=== PATIENT | female | born 1990 | race Caucasian/White ===

== ENCOUNTER 2019-06-10 23:18 | Inpatient (IN) | payer OTHER ==
[2019-06-11] MEDS ORDERED: Bupivacaine 0.25% 10 ML SDV ONE
[2019-06-11] MEDS ORDERED: Nalbuphine 10 MG/1 ML Vial IVPUSH PRN (00:07)
[2019-06-11] MEDS ORDERED: Ondansetron 4 MG/2 ML SDV IVPUSH PRN ×2 (00:07→02:41)
[2019-06-11] MEDS ORDERED: Sodium Chloride 0.9% 10 ML Syringe FLUSH PRN (00:07)
[2019-06-11] MEDS ORDERED: Oxytocin/Lactated Ringers 10 UNIT/1,000 ML BAG IV SCH ×2 (00:15)
[2019-06-11] MEDS: Lactated Ringers 1,000 ML IV SCH ×2 (02:07→02:43)
[2019-06-11] MEDS ORDERED: fentaNYL 100 MCG/2 ML SDV EPIDUR PRN (02:41)
[2019-06-11] MEDS ORDERED: fentaNYL/Bupivacaine/NS 2 MCG-0.125% 250 ML EPIDUR PRN (02:41)
[2019-06-11] MEDS ORDERED: ePHEDrine 50 MG/ML SDV IVPUSH PRN (02:41)
[2019-06-11] MEDS ORDERED: Phenylephrine 1 MG in Sodium Chloride 0.9% 10 ML IV SCH (02:45)
--- NOTE | 2019-06-11 02:45 | PCM.PREANE ---
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.), Seizure (Seizure noted about 18 years ago: patient currently not on any seizure medication) Other: Reports: None, Sinus Problem - Physical Assessment NPO Status Date: 06/10/19 NPO Status Time: 20:00 Vital Signs: Last Vital Signs Temp 36.9 C 06/10/19 23:29 Pulse 76 06/10/19 23:29 Resp 16 06/10/19 23:29 BP 137/71 06/10/19 23:29 Pulse Ox 100 06/10/19 23:29 Height: 1.7 m Weight: 81.193 kg ASA Class: 2 Mental Status: Alert & Oriented x3 Airway Class: Mallampati = 1 Dentition: Reports: Normal Dentition, Caries Thyro-Mental Finger Breadths: 3 Mouth Opening Finger Breadths: 3 ROM/Head Extension: Full Lungs: Clear to Auscultation, Normal Respiratory Effort Cardiovascular: Regular Rate, Regular Rhythm, No Murmurs - Lab Values: Laboratory Last Values WBC 13.41 K/mm3 (3.98-10.04) H 06/11/19 00:33 RBC 4.19 M/mm3 (3.98-5.22) 06/11/19 00:33 Hgb 12.8 gm/dl (11.2-15.7) 06/11/19 00:33 Hct 38.0 % (34.1-44.9) 06/11/19 00:33 MCV 90.7 fl (79.4-94.8) 06/11/19 00:33 MCH 30.5 pg (25.6-32.2) 06/11/19 00:33 MCHC 33.7 g/dl (32.2-35.5) 06/11/19 00:33 RDW Std Deviation 43.2 fL (36.4-46.3) 06/11/19 00:33 Plt Count 249 K/mm3 (182-369) 06/11/19 00:33 MPV 9.1 fl (9.4-12.3) L 06/11/19 00:33 Neut % (Auto) 69.8 % (34.0-71.1) 06/11/19 00:33 Lymph % (Auto) 19.5 % (19.3-51.7) 06/11/19 00:33 [place] % (Auto) 9.2 % (4.7-12.5) 06/11/19 00:33 Eos % (Auto) 0.8 (0.7-5.8) 06/11/19 00:33 Baso % (Auto) 0.3 % (0.1-1.2) 06/11/19 00:33 Neut # (Auto) 9.35 K/mm3 (1.56-6.13) H 06/11/19 00:33 Lymph # (Auto) 2.62 K/mm3 (1.18-3.74) 06/11/19 00:33 [place] # (Auto) 1.23 K/mm3 (0.24-0.36) H 06/11/19 00:33 Eos # (Auto) 0.11 K/mm3 (0.04-0.36) 06/11/19 00:33 Baso # (Auto) 0.04 K/mm3 (0.01-0.08) 06/11/19 00:33 Above labs reviewed and noted and within acceptable ranges to proceed with epidural. - Allergies Allergies/Adverse Reactions: Allergies Allergy/AdvReac Type Severity Reaction Status Date / Time No Known Allergies Allergy Verified 06/10/19 23:29 - Anesthesia Plan Pre-Op Medication Ordered: None - Acknowledgements Anesthesia Type Planned: Epidural Pt an Appropriate Candidate for the Planned Anesthesia: Yes Alternatives and Risks of Anesthesia Discussed w Pt/Guardian: Yes Pt/Guardian Understands and Agrees with Anesthesia Plan: Yes PreAnesthesia Questionnaire Cardiovascular History: Reports: Other (See Below) Other Cardiovascular History: Antiphospholipid syndrome- positive anti- cardiolipin antibody 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: Neurological History: Reports: Seizure, Other (See Below) Other Neuro History: Epilepsy in childhood, seizure free over 20 years per pt Immunologic History: Reports: Other (See Below) Other Immunologic History: Connective tissue disorder - Infectious Disease History Infectious Disease History: Reports: Chicken Pox - Past Surgical History HEENT Surgical History: Reports: Oral Surgery, Tonsillectomy Musculoskeletal Surgical History: Reports: Other (See Below) Other Musculoskeletal Surgeries/Procedures:: Right ACL repair - SUBSTANCE USE Smoking Status *Q: Never Smoker Second Hand Smoke Exposure: No Recreational Drug Use History: No - HOME MEDS Home Medications: Home Meds Vit with Ca/FA/Iron [ Plus Iron] 1 each PO DAILY #100 tablet [Rx] Aspirin [Adult Low Dose Aspirin EC] 81 mg PO DAILY 04/24/19 [History] Calcium Carbonate [Calcium] 500 mg PO DAILY 04/24/19 [History] - CURRENT (IN HOUSE) MEDS Current Meds: Current Medications Ephedrine Sulfate (Ephedrine Sulfate) 5 mg IVPUSH ASDIRECTED PRN PRN Reason: Hypotension Fentanyl (Sublimaze) 100 mcg EPIDUR Q3H PRN PRN Reason: Pain Fentanyl/Bupivacaine HCl (Fentanyl/Bupivacaine/Ns 2 Mcg-0.125% 250 Ml) ml EPIDUR CONTINUOUS PRN PRN Reason: Pain Lactated Ringer's (Ringers, Lactated) 1,000 mls @ 100 mls/hr IV ASDIRECTED BLAYNE Last Admin: 06/11/19 02:07 Dose: 100 mls/hr Oxytocin/Lactated Ringer's (Pitocin In Lr 10 Units/1,000 Ml) 10 unit in 1,000 mls @ 12 mls/hr IV TITRATE BLAYNE; Protocol Oxytocin/Lactated Ringer's (Pitocin In Lr 10 Units/1,000 Ml) 10 unit in 1,000 mls @ 500 mls/hr IV .CONTINUOUS BLAYNE Phenylephrine HCl 1 mg/ Sodium (Chloride) 10.1 mls @ 1 mls/sec IV TITRATE BLAYNE; Protocol Nalbuphine HCl (Nubain) 10 mg IVPUSH Q2H PRN PRN Reason: Pain Ondansetron HCl (Zofran) 4 mg IVPUSH Q4H PRN PRN Reason: Nausea/Vomiting Ondansetron HCl (Zofran) 4 mg IVPUSH ONETIME PRN PRN Reason: Nausea/Vomiting Sodium Chloride (Saline Flush) 10 ml FLUSH ASDIRECTED PRN PRN Reason: Keep Vein Open
--- NOTE | 2019-06-11 07:17 | PCM.LDHP ---
L&D History of Present Illness - General Date of Service: 06/11/19 Admit Problem/Dx: Patient Status Order with Admit Dx/Problem 06/10/19 23:29 Patient Status [ADT] Routine 06/11/19 00:08 Patient Status [ADT] Routine Admission Diagnosis/Problem Admission Diagnosis/Problem 06/11/19 07:04 Nicolette is a 28-year-old 3 para 2002 white female at 37-6/7 weeks gestational age with an NESSA of 06/26/2019 who was admitted in active labor with progressive cervical dilation. Source of Information: Patient History Limitations: Reports: No Limitations - History of Present Illness Introduction:: Nicolette is a 28-year-old 3 para 2002 white female at 37-6/7 weeks gestational age with an NESSA of 06/26/2019 who was admitted in active labor with progressive cervical dilation.Patient began in very early labor last evening on 06/10/2019 and progressed to contractions every 3 minutes. She continues with contractions. Her cervix is dilated to 6 cm, 100% effaced, -1 station, cephalic presentation, shearer is ruptured with resultant clear amniotic fluid. Heart tones are reassuring. 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 09/19/2018 and supported by multiple ultrasounds during the course of the . Ultrasound being done at 12-2/7 weeks gestational age. She had menarche at age 13. Cycles every 28-30 days. No control being used at time conception. Positive hCG on 10/16/2018. Last period was definite. Patient's past obstetric history includes the followin. Male infant born 06/13/201439-5/7 weeks gestational age13 hours of labor6 lbs. 7 oz.normal spontaneous vaginal deliverypain control in [facility]St[facility]. Female infant born 06/17/201638-3/7 weeks gestational age12 hours of labor6 lbs. 13 oz.NSVDepidural for pain controlSt [facility] [place] course patient was initially seen on 12/13/2018 ultrasound confirmed dates. She was seen on a very regular basis throughout the area she has a history of anticardiolipin IgM positive status with the picture similar to a mixed connective tissue disease. She is followed by rheumatology in [place], [place]. Table throughout the course. She's been evaluated on a frequent basis with both ultrasounds and over the last 10 weeks weekly biophysical profiles. She is made good growth and it showed no evidence of uteroplacental compromise. She had a positive RPR but a confirmatory Treponema pallidum antibody test was negative. She is group B strep negative. She has had immunizations with influenza vaccine 05/28/2019. T dap 04/30/2019. Her rubella titer shows immunity. She had her hepatitis B vaccination in 2002. Her meningococcal vaccination in 2007. Her HPV vaccinations were in 2006 per protocol. During the course of her care patient's weight increased from 150- 173.8 pounds for approximate 24 pound weight gain. She was a centering patient. She is maintained on vitamins and calcium throughout the course. She was also on low dose aspirin empirically. 8 growth was appropriate and her vital signs remained stable throughout the course. Laboratory testing and showed her blood type to be AB+. Her antibody screen is negative. Hemoglobin at first visit was 13.9 g/dL and platelets are 323,000. She is rubella immune. RPR was reactive but a confirmatory Treponema pallidum antibody study was negative. Urine culture was negative. Hepatitis B surface antigen and HIV assays are both negative as were her gonorrhea and chlamydia evaluations. Second trimester laboratory testing showed hemoglobin 13.3 g/dL. Platelets were 263,000. One-hour GTT was normal at 86. Her group B strep screen was negative. Allergies: None Medications: 1. Calcium 600 mg per day 2 1 by mouth daily 3. Acetaminophen when necessary during for pain 4. Low-dose aspirin 81 mg by mouth daily Past medical history: 1. 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 2. 3. Seizures as a childresolved Past surgical history: 1. Right knee ACL repair 2. Tonsillectomy 3. [place] teeth extraction Family history: Niece patient has congenital heart defect. Patient's are alive and relatively good health. No -related problems are noted. No bleeding , blood clotting, or anesthesia problems reported. Social history: Patient is . She is college graduate. She works for the [employer]. She does not use any significant loss of alcohol, drugs or tobacco. She lives in [place], [place]. Review of systems: In general patient has no complaints. She is khushboo. Baby is active. Skin: Negative Lungs: No infectious symptoms or shortness of breath Cardiovascular: No chest pain or exercise intolerance Breasts: No lumps, changes in size, pain, dimpling, discharge or axillary or supraclavicular concerns. Changes associated with . GI: Negative : Changes associated with . Musculoskeletal: Negative Neurological: Negative In general the patient is well-developed, well-nourished, pleasant female of stated age in no acute distress. Skin is warm dry without lesions. HEENT, neck and back within normal limits. Lungs are clear with good breath sounds in all lung taveras. Cardiovascular exam shows regular and rhythm without murmurs. Breasts exam is deferred having been done at first visit and found to be normal it is not repeated at this time. Abdomen is gravid with last fundal height in clinic at 36+ centimeters consistent with gestational age. Genital exam as described above in history of present illness. Extremities and neurological exam are grossly within normal limits. 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: Neurological History: Reports: Seizure, Other (See Below) Other Neuro History: Epilepsy in childhood, seizure free over 20 years per pt Immunologic History: Reports: Other (See Below) Other Immunologic History: Connective tissue disorder - Infectious Disease History Infectious Disease History: Reports: Chicken Pox - Past Surgical History HEENT Surgical History: Reports: Oral Surgery, Tonsillectomy Musculoskeletal Surgical History: Reports: Other (See Below) Other Musculoskeletal Surgeries/Procedures:: Right ACL repair Social & Family History - Family History Family Medical History: Noncontributory - Tobacco Use Smoking Status *Q: Never Smoker Second Hand Smoke Exposure: No - Recreational Drug Use Recreational Drug Use: No H&P Review of Systems - Review of Systems: Review Of Systems: See Below L&D Exam - Exam Exam: See Below - Vital Signs Vital Signs: Last Vital Signs Temp 36.9 C 06/10/19 23:29 Pulse 76 06/10/19 23:29 Resp 16 06/10/19 23:29 BP 137/71 06/10/19 23:29 Pulse Ox 100 06/10/19 23:29 Weight: 81.193 kg - Patient Data Lab Results Last 24 hrs: Laboratory Results - last 24 hr 06/11/19 Range/Units 00:33 WBC 13.41 H (3.98-10.04) K/mm3 RBC 4.19 (3.98-5.22) M/mm3 Hgb 12.8 (11.2-15.7) gm/dl Hct 38.0 (34.1-44.9) % MCV 90.7 (79.4-94.8) fl MCH 30.5 (25.6-32.2) pg MCHC 33.7 (32.2-35.5) g/dl RDW Std Deviation 43.2 (36.4-46.3) fL Plt Count 249 (182-369) K/mm3 MPV 9.1 L (9.4-12.3) fl Neut % (Auto) 69.8 (34.0-71.1) % Lymph % (Auto) 19.5 (19.3-51.7) % [place] % (Auto) 9.2 (4.7-12.5) % Eos % (Auto) 0.8 (0.7-5.8) Baso % (Auto) 0.3 (0.1-1.2) % Neut # (Auto) 9.35 H (1.56-6.13) K/mm3 Lymph # (Auto) 2.62 (1.18-3.74) K/mm3 [place] # (Auto) 1.23 H (0.24-0.36) K/mm3 Eos # (Auto) 0.11 (0.04-0.36) K/mm3 Baso # (Auto) 0.04 (0.01-0.08) K/mm3 Result Diagrams: 06/11/19 00:33 Problem List Initiated/Reviewed/Updated: Yes Orders Last 24hrs: Active Orders 24 hr Category Date Time Status Patient Status [ADT] Routine ADT 06/11/19 00:08 Active Activity as Tolerated [RC] PFP Care 06/11/19 00:08 Active Antiembolic Devices [RC] PER UNIT ROUTINE Care 06/11/19 03:05 Active Communication Order [RC] ASDIRECTED Care 06/11/19 00:08 Active Heart Tones [RC] ASDIRECTED Care 06/11/19 00:08 Active Non Stress Test [RC] PER UNIT ROUTINE Care 06/10/19 23:29 Active Notify Provider [RC] ASDIRECTED Care 06/11/19 02:41 Active Notify Provider [RC] PFP Care 06/11/19 00:08 Active Notify Provider [RC] PRN Care 06/11/19 00:08 Active Oxygen Therapy [RC] ASDIRECTED Care 06/11/19 02:41 Active Peripheral IV Care [RC] . DIRECTED Care 06/11/19 00:08 Active Pulse Oximetry [RC] ASDIRECTED Care 06/11/19 02:41 Active Vital Signs [RC] PER UNIT ROUTINE Care 06/10/19 23:29 Active Vital Signs [RC] PER UNIT ROUTINE Care 06/11/19 00:08 Active Regular Diet [DIET] Diet 06/11/19 Breakfast Active RAPID PLASMA REAGIN,RPR [CHEM] Routine Lab 06/11/19 00:33 Received Bupivicaine/fentaNYL/NS [fentaNYL/Bupivacaine/NS 2 MCG- Med 06/11/19 02:41 Active 0.125% 250 ML] 0 ml EPIDUR CONTINUOUS PRN Lactated Ringers [Ringers, Lactated] 1,000 ml Med 06/11/19 00:15 Active IV ASDIRECTED Nalbuphine [Nubain] Med 06/11/19 00:07 Active 10 mg IVPUSH Q2H PRN Ondansetron [Zofran] Med 06/11/19 02:41 Active 4 mg IVPUSH ONETIME PRN Ondansetron [Zofran] Med 06/11/19 00:07 Active 4 mg IVPUSH Q4H PRN Oxytocin/Lactated Ringers [Pitocin in LR 10 Units/1,000 Med 06/11/19 00:15 Active ML] 10 unit in 1,000 ml IV .CONTINUOUS Oxytocin/Lactated Ringers [Pitocin in LR 10 Units/1,000 Med 06/11/19 00:15 Active ML] 10 unit in 1,000 ml IV TITRATE Phenylephrine [Gutierrez-Synephrine] 1 mg Med 06/11/19 02:45 Active Sodium Chloride 0.9% [Normal Saline] 10 ml IV TITRATE Sodium Chloride 0.9% [Saline Flush] Med 06/11/19 00:07 Active 10 ml FLUSH ASDIRECTED PRN ePHEDrine [ePHEDrine sulfate] Med 06/11/19 02:41 Active 5 mg IVPUSH ASDIRECTED PRN fentaNYL [Sublimaze] Med 06/11/19 02:41 Active 100 mcg EPIDUR Q3H PRN Electronic Heart Tones Ext w TOCO [WOMSER] Oth 06/11/19 00:08 Ordered Routine Electronic Heart Tones Internal [WOMSER] Per Unit Oth 06/11/19 00:08 Ordered Routine Peripheral IV Insertion Adult [OM.PC] Routine Oth 06/11/19 00:08 Ordered SCD [Sequential Compression Device] [OM.PC] Routine Oth 06/11/19 03:05 Ordered Resuscitation Status Routine Resus Stat 06/10/19 23:29 Ordered Medication Orders Ephedrine Sulfate (Ephedrine Sulfate) 5 mg IVPUSH ASDIRECTED PRN PRN Reason: Hypotension Fentanyl (Sublimaze) 100 mcg EPIDUR Q3H PRN PRN Reason: Pain Last Admin: 06/11/19 02:55 Dose: 100 mcg Fentanyl/Bupivacaine HCl (Fentanyl/Bupivacaine/Ns 2 Mcg-0.125% 250 Ml) 0 ml EPIDUR CONTINUOUS PRN PRN Reason: Pain Last Admin: 06/11/19 02:56 Dose: 250 ml Lactated Ringer's (Ringers, Lactated) 1,000 mls @ 100 mls/hr IV ASDIRECTED BLAYNE Last Admin: 06/11/19 02:43 Dose: 100 mls/hr Infusion: 06/11/19 02:43 Dose: 100 mls/hr Admin: 06/11/19 02:07 Dose: 100 mls/hr Oxytocin/Lactated Ringer's (Pitocin In Lr 10 Units/1,000 Ml) 10 unit in 1,000 mls @ 12 mls/hr IV TITRATE BLAYNE; Protocol Oxytocin/Lactated Ringer's (Pitocin In Lr 10 Units/1,000 Ml) 10 unit in 1,000 mls @ 500 mls/hr IV .CONTINUOUS BLAYNE Phenylephrine HCl 1 mg/ Sodium (Chloride) 10.1 mls @ 1 mls/sec IV TITRATE BLAYNE; Protocol Nalbuphine HCl (Nubain) 10 mg IVPUSH Q2H PRN PRN Reason: Pain Ondansetron HCl (Zofran) 4 mg IVPUSH Q4H PRN PRN Reason: Nausea/Vomiting Ondansetron HCl (Zofran) 4 mg IVPUSH ONETIME PRN PRN Reason: Nausea/Vomiting Sodium Chloride (Saline Flush) 10 ml FLUSH ASDIRECTED PRN PRN Reason: Keep Vein Open Assessment/Plan Comment:: Assessment: 1. 37-6/7 week intrauterine , active labor with advanced cervical dilation. 2. Anticardiolipin M positive statusfindings consistent with mixed connective tissue disease. Patient been followed closely for growth interval and uteroplacental function abnormality. She has done very well and has had normal evaluations antepartum. 3. Group B strep negative 4. Patient plans to breast-feed 5. Patient desires epidural in labor and delivery 6. Patient is up-to-date regarding her flu vaccination, her T dap. She is rubella immune. 7. Patient is a centering patient Plan: 1. Anticipate normal spontaneous vaginal delivery. 2. Inform pediatrics of her anti-M antibody status 3. Epidural in labor and delivery 4. Support breast-feeding incision 5. RPR and CBC upon admission. May need to do confirmatory Treponema pallidum antibody assay to confirm negative status if RPR returned positive.
--- NOTE | 2019-06-11 08:07 | PCM.SN ---
- Free Text/Narrative Note: Nicolette is a 28-year-old 3 para 2003 white female at 37-6/7 weeks gestational age with an NESSA of 06/26/2019 who was admitted in active labor with progressive cervical dilation.Patient began in very early labor during the evening on 06/10/2019 and progressed to contractions every 3 minutes. She progressed steadily towards complete cervical dilation. At approximately 0730 hrs. she became completely dilated. She pushed with 1 contraction delivered a viable, cooper, male infant in the direct occiput anterior position over an intact perineum. The baby weighed 3120 g (6 pounds 14.1 ounces), length of 20.5 inches and Apgars of 8 and 7. Baby was placed on mom's abdomen records allowed to pulsate for approximately 2-3 minutes then was clamped and cut by the patient herself. The umbilical cord had 3 vessels. Umbilical cord blood was obtained. Pitocin per protocol was started at 500 mL per hour. Placenta delivered in a Sosa reason dictation, appeared intact and complete and was discarded per patient desire. Estimated blood loss was 100 mL. Patient plans to breast-feed. Condition: Good
[2019-06-11] MEDS ORDERED: Acetaminophen 325 MG Tab PO PRN (08:29)
[2019-06-11] MEDS ORDERED: Docusate Sodium 100 MG Cap PO PRN (08:29)
[2019-06-11] MEDS: Ibuprofen 600 MG Tab PO PRN ×2 (08:52→19:00)
--- NOTE | 2019-06-11 16:25 | PCM48HPAN ---
Post Anesthesia Note - EVALUATION WITHIN 48HRS OF ANESTHETIC Vital Signs in Normal Range: Yes Patient Participated in Evaluation: Yes Respiratory Function Stable: Yes Airway Patent: Yes Cardiovascular Function Stable: Yes Hydration Status Stable: Yes Pain Control Satisfactory: Yes Nausea and Vomiting Control Satisfactory: Yes Mental Status Recovered: Yes Vital Signs: Last Vital Signs Temp 98.5 F 06/10/19 23:29 Pulse 72 06/11/19 13:28 Resp 14 06/11/19 13:28 BP 132/60 06/11/19 13:28 Pulse Ox 98 06/11/19 13:28
[2019-06-12] MEDS: Ibuprofen 600 MG Tab PO PRN ×3 (00:25→11:12)
--- NOTE | 2019-06-12 09:36 | PCM.DCSUM1 ---
Discharge Summary - Hospital Course Free Text/Narrative:: Nicolette is a 28-year-old 3 para 2003 white female at 37-6/7 weeks gestational age with an NESSA of 06/26/2019 who was admitted in active labor with progressive cervical dilation.Patient began in very early labor during the evening on 06/10/2019 and progressed to contractions every 3 minutes. She progressed steadily towards complete cervical dilation. At approximately 0730 hrs. she became completely dilated. She pushed with 1 contraction delivered a viable, cooper, male infant in the direct occiput anterior position over an intact perineum. The baby weighed 3120 g (6 pounds 14.1 ounces), length of 20.5 inches and Apgars of 8 and 7. Baby was placed on mom's abdomen records allowed to pulsate for approximately 2-3 minutes then was clamped and cut by the patient herself. The umbilical cord had 3 vessels. Umbilical cord blood was obtained. Pitocin per protocol was started at 500 mL per hour. Placenta delivered in a Sosa reason dictation, appeared intact and complete and was discarded per patient desire. Estimated blood loss was 100 mL. Patient plans to breast-feed. patient is done well. She has minimal lochia, was voiding well and ambulating without concerns. She is a question discharge home. Condition: Good Diagnosis: Stroke: No - Discharge Data Discharge Date: 06/12/19 Discharge Disposition: Home, Self-Care 01 Condition: Good - Referral to Home Health Primary Care Physician: Andriy Felix MD - Patient Instructions Diet: Regular Diet as Tolerated (nursing diet with increase calories and calcium is recommended) Activity: As Tolerated (no intercourse or tampons until bleeding resolves) Driving: May Drive Today Showering/Bathing: May Shower (may take a bath) Notify Provider of: Fever, Increased Pain, Swelling and Redness, Nausea and/or Vomiting - Discharge Plan Home Medications: Home Meds Vit with Ca/FA/Iron [ Plus Iron] 1 each PO DAILY #100 tablet [Rx] Calcium Carbonate [Calcium] 500 mg PO DAILY 04/24/19 [History] Acetaminophen [Tylenol] 650 mg PO Q4H PRN tablet 06/12/19 [Rx] Ibuprofen [Motrin] 600 mg PO Q4H PRN tablet 06/12/19 [Rx] Referrals: Andriy Felix MD [Primary Care Provider] - (return to clinictwo weeks-Dr. Felix) - Discharge Summary/Plan Comment DC Time >30 min.: No Discharge Summary/Plan Comment: Discharge instructions: 1. Discharge home 2. Diet, activity and follow-up discussed with patient. Recommend nursing diet with increased calories and calcium. 3. Precautions given concern increased pain, bleeding, temperature, signs/ symptoms of DVT/PE. 4. Medications per home medication was printed, discussed with and given to the patient. 5. Return to clinic-Dr. Felix[facility] in 2 weeks. Diagnosis: Term -delivered Condition: Good - Patient Data Vitals - Most Recent: Last Vital Signs Temp 36.7 C 06/12/19 04:40 Pulse 65 06/12/19 04:40 Resp 16 06/12/19 04:40 BP 116/72 06/12/19 04:40 Pulse Ox 98 06/12/19 04:40 Weight - Most Recent: 81.193 kg I&O - Last 24 hours: Intake & Output 06/11/19 06/12/19 06/12/19 22:59 06:59 14:59 Intake Total 240 Balance 240 Lab Results - Last 24 hrs: Laboratory Results - last 24 hr 06/11/19 06/11/19 Range/Units 00:33 00:33 RPR Titer 1:8 RPR Reactive H (NONREACTIVE) Med Orders - Current: Current Medications Acetaminophen (Tylenol) 650 mg PO Q4H PRN PRN Reason: mild pain or fever Docusate Sodium (Colace) 100 mg PO BID PRN PRN Reason: Constipation Last Admin: 06/12/19 08:23 Dose: 100 mg Ibuprofen (Motrin) 600 mg PO Q4H PRN PRN Reason: Mild pain or fever Last Admin: 06/12/19 04:47 Dose: 600 mg Discontinued Medications Bupivacaine HCl (Sensorcaine-Mpf 0.25%) 10 ml .ROUTE .STK-MED ONE Stop: 06/11/19 00:01 Ephedrine Sulfate (Ephedrine Sulfate) 5 mg IVPUSH ASDIRECTED PRN PRN Reason: Hypotension Fentanyl (Sublimaze) 100 mcg EPIDUR Q3H PRN PRN Reason: Pain Last Admin: 06/11/19 02:55 Dose: 100 mcg Fentanyl/Bupivacaine HCl (Fentanyl/Bupivacaine/Ns 2 Mcg-0.125% 250 Ml) 0 ml EPIDUR CONTINUOUS PRN PRN Reason: Pain Last Admin: 06/11/19 02:56 Dose: 250 ml Lactated Ringer's (Ringers, Lactated) 1,000 mls @ 100 mls/hr IV ASDIRECTED BLAYNE Last Admin: 06/11/19 02:43 Dose: 100 mls/hr Oxytocin/Lactated Ringer's (Pitocin In Lr 10 Units/1,000 Ml) 10 unit in 1,000 mls @ 12 mls/hr IV TITRATE BLAYNE; Protocol Oxytocin/Lactated Ringer's (Pitocin In Lr 10 Units/1,000 Ml) 10 unit in 1,000 mls @ 500 mls/hr IV .CONTINUOUS BLAYNE Last Admin: 06/11/19 08:52 Dose: 500 mls/hr Phenylephrine HCl 1 mg/ Sodium (Chloride) 10.1 mls @ 1 mls/sec IV TITRATE BLAYNE; Protocol Nalbuphine HCl (Nubain) 10 mg IVPUSH Q2H PRN PRN Reason: Pain Ondansetron HCl (Zofran) 4 mg IVPUSH Q4H PRN PRN Reason: Nausea/Vomiting Ondansetron HCl (Zofran) 4 mg IVPUSH ONETIME PRN PRN Reason: Nausea/Vomiting Sodium Chloride (Saline Flush) 10 ml FLUSH ASDIRECTED PRN PRN Reason: Keep Vein Open
[2019-06-12 09:54] VITALS: BP 122/69; PULSE 68
== END 2019-06-12 15:20 | disposition home or self-care (01) | DRG 807 ==
LOC: JD.OBCHECK 23:18 → JD.OB 23:22 → JD.OBCHECK 06-11 01:38 → OBSVTOIN 06-11 07:41 → JD.OB 06-11 08:02
PROVIDERS: ADMIT Obstetrics & Gynecology; ATTEND Obstetrics & Gynecology
PROC: 10E0XZZ Delivery of Products of Conception, External Approach (ICD-10-PCS; principal; 2019-06-11)
PROC: 10907ZC Drainage of Amniotic Fluid, Therapeutic from Products of Conception, Via Natural or Artificial Opening (ICD-10-PCS; 2019-06-11)
DX: O80 Encounter for full-term uncomplicated delivery (principal); Z37.0 Single live birth; Z3A.37 37 weeks gestation of pregnancy; Z79.899 Other long term (current) drug therapy
CPT/HCPCS: 01967; 36415; 51702; 59025; 59409; 85025; 86592; 86780; A9270-GY; J2590; J3010; J3490; J7120

== ENCOUNTER → 2019-08-02 | Day surgery (SDC) | payer OTHER ==
[~2019-08-02] MED LIST: Bupivacaine 0.5%/EPINEPHrine 1:200,000 50 ML MDV ONE; HYDROmorphone 0.5 MG/0.5 ML Syringe IVPUSH PRN; Ketamine 500 mg/10 ML MDV ONE; Lactated Ringers 1,000 ML ONE; Lidocaine 1% 4 ML ONE; Lidocaine 1%/Sod Bicarbonate in NS 8.4% 1 ML Syringe IDERM PRN; Midazolam 1 MG/ML 2 ML SDV ONE; Neostigmine Methylsulfate 1 MG/ML 5 ML Syringe ONE; Ondansetron 4 MG/2 ML SDV IVPUSH PRN; Ondansetron 4 MG/2 ML SDV ONE; Propofol 200 MG/20 ML SDV ONE; Rocuronium 50 MG/5 ML Vial ONE; Sodium Chloride 0.9% 10 ML Syringe FLUSH PRN; ceFAZolin 1 GM Vial ONE; diphenhydrAMINE 50 MG/ML SDV IVPUSH PRN; fentaNYL 100 MCG/2 ML SDV ONE; fentaNYL 250 MCG/5 ML SDV ONE
--- NOTE | 2019-08-02 07:54 | PCM.HP.2 ---
H&P History of Present Illness - General Date of Service: 08/02/19 Admit Problem/Dx: umbilical hernia Source of Information: Patient - History of Present Illness Initial Comments - Free Text/Narative: PCP: Not Indicated, Unknown [id number] PCPSectionEnd HistoryReportedbySectionStart History Reported By LGK[id number] QhlzlFebmrlo3Upnbn The history was reported by the patient. RhnopBqsmbwr0Kcs QjrnkIzefygt3Rbolz SywmlPynubtk7Zct HESJrwtfliD[id number]- [id number] HistoryReportedbySectionEnd ReasonForVisitSectionStart Reason For Visit pt here for consult for umbilical hernia. pt has had 3 pregnancies and is about 2 weeks post . no c/o pain. ReasonForVisitSectionEnd ChiefComplaintSectionStart Chief Complaint umbilical hernia, symptomatic ChiefComplaint_10_twCiteListControlStart ChiefComplaint_10_twCiteListControlEnd ChiefComplaintSectionEnd HistoryofPresentIllnessSectionStart History of Present Illness Mrs. Cruz is a 28 yo woman, recently who reprts development of an umbilical hernia during her latest . She recently started to have pain at the site associated with activity. She denies any obstructive symptoms. The hernia has alwayss been reducible. She has no history of prior hernia repair. She is not sure if she desires more children in the future. HistoryofPresentIllnessSectionEnd ActiveProblemsSectionStart Active Problems ActiveProblems_10_twCiteListControlStart 1. 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 Connective tissue disorder (710.9) (M35.9) 4. Umbilical hernia (553.1) (K42.9) ActiveProblems_10_twCiteListControlEnd ActiveProblemsSectionEnd AllergiesSectionStart Allergies Allergies_20_twCiteListControlStart No Known Drug Allergies Recorded By: Zaida Ny; 03/18/2014 8:58:49 AM Allergies_20_twCiteListControlEnd AllergiesSectionEnd CurrentMedsSectionStart Current Meds CurrentMeds_4_twCiteListControlStart 1. Acetaminophen TABS; TAKE 1 TABLET EVERY 4 TO 6 HOURS NEEDED 2. Calcium 600 MG Oral Tablet; TAKE 1 TABLET DAILY 3. TABS; Take 1 tablet daily CurrentMeds_4_twCiteListControlEnd CurrentMedsSectionEnd PastMedicalHistorySectionStart Past Medical History PastMedicalHistory_10_twCiteListControlStart History of () ( V49.89) (Z78.9) History of Encounter for cervical Pap smear with pelvic exam (V76.2,V72.31) ( Z01.419) History of Encounter for related examination, second trimester (V22.1 ) (Z34.92) History of Encounter for related examination, third trimester (V22.1) (Z34.93) History of Encounter for related examination, third trimester (V22.1) (Z34.93) History of Encounter for routine gynecological examination (V72.31) (Z01.419) History of Encounter for supervision of normal (V22.1) (Z34.90) History of Family planning advice (V25.09) (Z30.09) History of Follow-up, , routine (V24.2) (Z39.2) History of GBS carrier (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) (Z22.330) History of Hemorrhoids, (671.84,455.6) (O87.2) History of allergic rhinitis (V12.69) (Z87.09) History of gastroesophageal reflux (GERD) (V12.79) (Z87.19) (PL) History of ovulatory pain (V13.29) (Z87.42) History of seizure disorder (V12.49) (Z86.69) (PL) History of sinus problem History of Irregular contractions (661.20) (O62.2) History of Pelvic pain in female (625.9) (R10.2) History of Positive RPR test (097.1) (A53.0) History of Screening breast examination (V76.10) (Z12.39) History of (spontaneous vaginal delivery) (650) (O80) History of Undifferentiated abdominal pain (789.00) (R10.9) History of UTI in (646.60,599.0) (O23.40) PastMedicalHistory_10_twCiteListControlEnd PastMedicalHistorySectionEnd SurgicalHistorySectionStart Surgical History SurgicalHistory_10_twCiteListControlStart History of Appendectomy (PL) History of Knee Surgery (PL) History of Oral Surgery Tooth Extraction History of Tonsillectomy (PL) SurgicalHistory_10_twCiteListControlEnd SurgicalHistorySectionEnd FamilyHistorySectionStart Family History FamilyHistory_70_twCiteListControlStart Mother Family history of arthritis (V17.7) (Z82.61) (PL) Father Family history of high cholesterol (V18.19) (Z83.42) (PL) Family history of hypertension (V17.49) (Z82.49) (PL) Sister Family history of high cholesterol (V18.19) (Z83.42) (PL) Brother Family history of asthma (V17.5) (Z82.5) (PL) Maternal Grandmother Family history of arthritis (V17.7) (Z82.61) (PL) Maternal Grandfather Family history of alcohol abuse (V61.41) (Z81.1) (PL) Family history of hypertension (V17.49) (Z82.49) (PL) FamilyHistory_70_twCiteListControlEnd FamilyHistorySectionEnd SocialHistorySectionStart Social History SocialHistory_10_twCiteListControlStart Alcohol use (V49.89) (Z72.89) (PL) drank alcohol in the past 7 or less drinks per week (July 29 2014) Almost always uses seat belt (PL) (July 29 2014) Completed college Currently working Denied: Drug use (305.90) (F19.90) (PL) (July 29 2014) Denied: Encounter for blood transfusion (V58.2) (Z51.89) (PL) (July 29 2014) Exercise habits (PL) 1-2 times per week (July 29 2014) Never a smoker (PL) (July 29 2014) Denied: No secondhand smoke exposure (V49.89) (Z78.9) (PL) (July 29 2014) Tobacco use (305.1) (Z72.0) (PL) Never smoker, never used other tobacco products (July 29 2014) SocialHistory_10_twCiteListControlEnd SocialHistorySectionEnd ReviewofSystemsSectionStart Review of Systems DTCIbgexOjpqilLFH-RouKszk3a9mc37u-6l3bHqoCpjp3r0ww63q-1j7b-2675-m0hq-14289572w4n8TjykDkxoc LjnaaMrexzdx64Mdszf ZgkelFdqbzkz45Frv QovpbBcakwxr16Qsbfg OuexgLodiamr24Zij RabpuGfuwnht4Tiblb CONSTITUTIONAL: no fever. AchxsCxrwxig4Nis PlifoKydzhcq82Tshlg EYES: no vision problems. DpwkkVvrtxfv10Ckh TkvkzIdidori5Vhyox ENT: no sinus problems. NztbgXnawcxc5Loq ZbkzuSckrzaa1Gtnli CARDIOVASCULAR: no chest pain. TktdxJokpqbk2Dcc HbzbaLwejtue42Kjaza RESPIRATORY: no cough. HfkivIophcwj58Sne PiuvdSeqhgjl73Durzu GASTROINTESTINAL: no change in bowel habits,no nausea,no vomitingandno constipation. ExkywJmhldaj96Wbr VqgxuBipwnkx64Qnmkg GENITOURINARY: no dysuria. XwesmUssmzwh69Ifs SmpeaYfzzygh81Ivizh MUSCULOSKELETAL: no back pain. LrubiAwuxzns93Hgu LqlylErmvgey1Daukc NEUROLOGICAL: no headache. TvejfEugfjux7Axm GkkcdYbnoluy7Xnowl PSYCHIATRIC: no depression. EiwraVitgzwd3Ynl QcdcdSradyrm24Zcxpa SorzjLnnramf73Vvt IIBGponeMcannxGRE-XnwQwzn1h3os58j-8p1i-4743-a7bc- [id number] ReviewofSystemsSectionEnd VitalsSectionStart Vitals Vitals_110_twCiteListControlStart Vital Signs Recorded: 29Jun2019 09:30AM Weight 163 lb BMI Calculated 26.31 BSA Calculated 1.83 Temperature 97.1 F Heart Rate 58 Respiration 18 Systolic 124 Diastolic 64 Pain Scale 0 VitalsSectionEnd HistoryReviewedSectionStart History Reviewed HRXIrfngjrSuigfolhUcbcsepDglofoogbd5u7r2-r5go-4pq3-loc9-v7i5xhuab55pHvwaKrgyz SszukBhlyymu3Cnvqb The history above, as entered by the clinical staff , was reviewed and updated as necessary by me. BanjnPzdlnpo2Iwn AssnaMheasqr3Djisu IzpfjMplftnp1Akk CHFSoutvufEeyytbtyDtvfjvxWcyxbmmoia1h0z4-w1bw-9qv5-azp2-e8v7vcluj06fFwcqMbn HistoryReviewedSectionEnd PhysicalExamSectionStart Physical Exam NWYLbdhpUvkqvtDszidQaqsysssJnajz59o22b3-025k-[id number] SndnRltuLaxdx55Kwhuo EhywWrqlLeaqi46Qkj CfzvtJludcnl4Npzzm IykwlTyabcmd6Bxm HdrdrZbzybgy69Qznpq GnsrsFkrjenk08Mdb MmhswCnwrdez54Pobql ADAM CRUZ appears well developed, well nourished and in no acute distress. MqhcxLhzzxsx44Hyj AdlfsAevdfzw42Qebwz HEAD & FACE: Her head and face are symmetric, normocephalic and atraumatic. VyzxnRhwfgqk84Vxm VfqmePgtmrng63Hctde ZvbqpDahxmyw65Dsy EwobcQxaccrf96Hcymn VblumXojqhha72Ixt FovfaLldbwvj33Oablh EYES: Inspection of the conjunctivae and lids reveals no swelling, erythema or discharge. LipjqKwxpclu12Dkm LosypQqjpvba91Bghsw IywvwNezetbs59Cve NnccoYzunstx94Gkzjk XhccoEmmutjq81Kml SwiwtOyejlnl7Dynlz EARS, NOSE, MOUTH & THROAT: On inspection, her ears and nose are within normal limits. SvaadJguuhrs7Nmk NigflQsbbzzc7Trkxg WwpnhMtmiobk6Iag EdspqJdsulvf4Obnpk AqingMlpdznv9Ntg JjajvDchegdr8Kkanx JdrmlFvbcxol6Yin LgtxsVfbseuq46Vxjob RoffxTwrxthp88Siq ZrhisDleiubq61Pgxtq NECK: Her neck is supple and symmetric. The trachea is midline with no masses. VsfzfQmlyqru85Ojq RjuzmCpmphrg98Inatw WxooqZzznrlb03Nqw TszseKljamlv45Xlmgs JyhsjVvzqsvc28Qdu KjuauPggdbhb06Gdgne PULMONARY: Respiratory effort is normal with no increased work of breathing or signs of respiratory distress.Lungs are clear to auscultation and symmetrical. DirgwEujgafs26Iae AzufhWdwqodh85Jkqmy NbicyXwnqnrl28Iww PfdcmCvppwsn41Mimxh KbdzlIomillq82Zpg CpccrYcrhouy12Okmet ScxxtSbhtxrw48Ymx LemehDhbvcnp44Raswv CARDIOVASCULAR: On auscultation the heart rate and rhythm is normal. S1 and S2 are normal and there are no murmurs. WzxeyBrekbyq12Dhx GcckxVkiomhd67Jtejp EyedfYbcowhb54Rmw GmnpmWrxvvlb84Bwfhq PzabtZqjhbjq42Uek LjecmCnbbqcb81Wqhww NjkeiBidievl17Omq AngvdFrojjgo94Riivb VspfvRagkawq30Oxh BcyrwVtaxfmw35Utvyo YqzrkClnetdu23Ova OojsxFplgvub54Dlnvh AlioqDoflymh71Fed WzmzfKhgjcly41Jbucc CHEST/BREASTS: The chest is normal on exam. ImgeiNgjyios12Vyw FoljdKevuqez51Nxooh BziyoKavxmkl60Kgs CsaelPugatry37Xhqmr KlxusArxtfik75Xiq TaqjkVekllam19Ooaao EnvusSqdfayz43Ued WultgEsuwumz37Viuyd LtydvUjtjfln36Ceb TtflsIsxopug53Bjhzm ABDOMEN: The abdomen is nontender and without masses.roughly 3 cm umbilical hernia, reducible, some tenderness with palpation. IsdgvBtppnzk27Gle YofskJmgyyhk35Slmmh BowbtIlfbsaf78Nfn RuvpmFoyltzq73Dnmxl EfxqkJnidypd76Wcz XrfvoTqxgdpo13Saexb QlmqsSspncrw23Eie ZefofCozqdhg20Joyvo HakgjDucoigx03Pso UxnnnDvdjszz87Pprgn YymkaZerhcdv90Wdx NynbsZenvlhh160Jvfai LmwagTpejbvz224Cza RrucgJgkfgcb99Tsgto WlyrgPiitkyu03Tgj OujaxUrnrvfp34Bxsxa KwsnlNzyhkwe78Ush AqhzdRxkiusd89Nmvum SwlkfDbrgddq89Rip VhqjiKojwrfz87Ktlxm KjgjmCmpbavp59Jtk TffqoOhuouyc41Wbmqg ZxkooGzvbqeo78Cct IgdacAtxfjgb04Eerlq MUSCULOSKELETAL: Gait and station are within normal limits. VijpbTcdavrt80Ksr WwrajRzktedu99Noopr PmascNmvikvs07Xrn UpfzuRitceyu07Kwsgt EowpzXuteimm98Bxm DfvydEysyvcr26Bkjne SlfmrBexfayz26Ofn IiquaOnsgoog16Yjycu XmhvwNyrnahd28Tay GauhlTuaqfrk18Jblbi HrjtfXivxwyn64Rgd YqnfwBmsvcha72Vtjyh JnjrgOoliytp61Aia EsvnxTsziqmw06Luzqz XuhrfTsbpkdc07Kgs HbhtaSyenmgk69Deaxk SKIN: Limited skin examination reveals no rashes or abnormal lesions. WbhjfRiuqogv93Jab LgydmNwvalki79Jhzns OuylnDawxzvy34Eph CuaeiLwzutvy06Udfpy MejisZcdbbxu37Ufq HzlcmPgddmnh12Ytjau SqhjkTqgonpp27Okj DgambNxwnbns46Tixsq OhpizAoheiyv59Nie XxcctCwibbbx83Rymkf HiyqgOiygizw80Ygm RjvhmAjvikfe13Nfnfe EonecWyhqgoh05Mge VetckFuhjepm95Wyyma PSYCHIATRIC: Patient's judgment and insight appear appropriate. 2. Umbilical hernia (553.1) (K42.9) - Related Data Allergies/Adverse Reactions: Allergies Allergy/AdvReac Type Severity Reaction Status Date / Time No Known Allergies Allergy Verified 08/01/19 18:07 Home Medications: Home Meds Vit with Ca/FA/Iron [ Plus Iron] 1 each PO DAILY #100 tablet [Rx] Calcium Carbonate [Calcium] 500 mg PO DAILY 04/24/19 [History] Acetaminophen [Tylenol] 650 mg PO Q4H PRN tablet 06/12/19 [Rx] Ibuprofen [Motrin] 600 mg PO Q4H PRN tablet 06/12/19 [Rx] Past Medical History HEENT History: Reports: Allergic Rhinitis, Sinusitis Cardiovascular History: Reports: Other (See Below) Other Cardiovascular History: Antiphospholipid syndrome- positive anti- cardiolipin antibody Respiratory History: Reports: None Gastrointestinal History: Reports: GERD, Hemorrhoids, Other (See Below) Other Gastrointestinal History: umbilical hernia Genitourinary History: Reports: None [employer] History: Reports: Other OB/BYN History: GBS+, ovulatory pain, knee surgery Other Musculoskeletal History: connective tissue disorder Neurological History: Reports: Seizure, Other (See Below) Other Neuro History: Epilepsy in childhood, seizure free over 20 years per pt Psychiatric History: Reports: None Endocrine/Metabolic History: Reports: None Hematologic History: Reports: None Immunologic History: Reports: Other (See Below) Other Immunologic History: Connective tissue disorder Oncologic (Cancer) History: Reports: None - Infectious Disease History Infectious Disease History: Reports: Chicken Pox - Past Surgical History Head Surgeries/Procedures: Reports: None HEENT Surgical History: Reports: Oral Surgery, Tonsillectomy Cardiovascular Surgical History: Reports: None Respiratory Surgical History: Reports: None GI Surgical History: Reports: Appendectomy Female Surgical History: Reports: None Male Surgical History: Reports: None Endocrine Surgical History: Reports: None Neurological Surgical History: Reports: None Musculoskeletal Surgical History: Reports: Arthroscopic Knee, Other (See Below) Other Musculoskeletal Surgeries/Procedures:: Right ACL repair Oncologic Surgical History: Reports: None Dermatological Surgical History: Reports: None Social & Family History - Family History Family Medical History: Noncontributory - Tobacco Use Smoking Status *Q: Never Smoker - Caffeine Use Caffeine Use: Reports: None - Recreational Drug Use Recreational Drug Use: No Drug Use in Last 12 Months: No H&P Review of Systems - Review of Systems: Review Of Systems: See Below General: Reports: No Symptoms HEENT: Reports: No Symptoms Pulmonary: Reports: No Symptoms Cardiovascular: Reports: No Symptoms Gastrointestinal: Reports: No Symptoms, Abdominal Pain Genitourinary: Reports: No Symptoms Musculoskeletal: Reports: No Symptoms Skin: Reports: No Symptoms Psychiatric: Reports: No Symptoms Neurological: Reports: No Symptoms Hematologic/Lymphatic: Reports: No Symptoms Immunologic: Reports: No Symptoms Exam - Exam Exam: See Below - Exam General: Alert HEENT: Conjunctiva Clear Neck: Supple Lungs: Clear to Auscultation Cardiovascular: Regular Rate GI/Abdominal Exam: Normal Bowel Sounds (Female) Exam: Deferred Rectal (Female) Exam: Deferred Back Exam: Normal Inspection Extremities: Normal Inspection Skin: Warm, Dry Neuro Extensive - Mental Status: Alert, Oriented x3 Neuro Extensive - Motor, Sensory, Reflexes: Normal Gait Psychiatric: Alert, Normal Affect *Q Meaningful Use (ADM) - VTE Risk Assess *Q Each Risk Factor Represents 1 Point: Minor Surgery Planned Total Score 1 Point Risk Factors: 1 Problem List Initiated/Reviewed/Updated: Yes Orders Last 24hrs: Active Orders 24 hr Category Date Time Status Peripheral IV Care [RC] . DIRECTED Care 08/02/19 00:01 Active Verify Patient Consent Obtain [RC] ASDIRECTED Care 08/02/19 00:01 Active HCG QUALITATIVE,URINE [URCHEM] Stat Lab 08/02/19 00:01 Ordered Lactated Ringers [Ringers, Lactated] 1,000 ml Med 08/02/19 00:01 Active IV ASDIRECTED Lidocaine 1%/Sod Bicarbonate [Buffered Lidocaine 1% in Med 08/02/19 00:01 Active NS 8.4%] 0.25 ml IDERM ONETIME PRN Sodium Chloride 0.9% [Saline Flush] Med 08/02/19 00:01 Active 10 ml FLUSH ASDIRECTED PRN Medication Administration Instruction [OM.PC] Routine Oth 08/02/19 00:01 Ordered Peripheral IV Insertion Adult [OM.PC] Routine Oth 08/02/19 00:01 Ordered Medication Orders Lactated Ringer's (Ringers, Lactated) 1,000 mls @ 125 mls/hr IV ASDIRECTED BLAYNE Stop: 08/02/19 23:00 Lidocaine/Sodium Bicarbonate (Buffered Lidocaine 1% In Ns 8.4%) 0.25 ml IDERM ONETIME PRN PRN Reason: Prior to IV Start Stop: 08/02/19 18:00 Sodium Chloride (Saline Flush) 10 ml FLUSH ASDIRECTED PRN PRN Reason: Keep Vein Open Stop: 08/02/19 18:00 Assessment/Plan Comment:: presenting today as scheduled for laparoscopic umbilical hernia repair with mesh placement. - Mortality Measure Prognosis:: Good
--- NOTE | 2019-08-02 08:28 | PCM.PREANE ---
Preanesthetic Assessment - Anesthesia/Transfusion/Family Hx Anesthesia History: Prior Anesthesia Reaction (pt states at 4 when she had her tonsils out she had seizures, couldn't rule out anesthesia related, none since then) Other Type of Anesthesia Reaction Comment: Seizure Family History of Anesthesia Reaction: No Transfusion History: No Prior Transfusion(s) Type of Transfusion Reactions: Reports: Unknown Intubation History: Unknown - Review of Systems General: No Symptoms Pulmonary: No Symptoms Cardiovascular: No Symptoms Gastrointestinal: No Symptoms Neurological: No Symptoms Other: Reports: None - Physical Assessment NPO Status Date: 08/01/19 NPO Status Time: 20:00 ASA Class: 2 Mental Status: Alert & Oriented x3 Airway Class: Mallampati = 2 Dentition: Reports: Normal Dentition Thyro-Mental Finger Breadths: 3 Mouth Opening Finger Breadths: 3 ROM/Head Extension: Full Lungs: Clear to Auscultation, Normal Respiratory Effort Cardiovascular: Regular Rate, Regular Rhythm - Lab Values: Laboratory Last Values Urine HCG, Qual Negative (NEGATIVE) 08/02/19 08:03 - Allergies Allergies/Adverse Reactions: Allergies Allergy/AdvReac Type Severity Reaction Status Date / Time No Known Allergies Allergy Verified 08/01/19 18:07 - Acknowledgements Anesthesia Type Planned: General Anesthesia Pt an Appropriate Candidate for the Planned Anesthesia: Yes Alternatives and Risks of Anesthesia Discussed w Pt/Guardian: Yes Pt/Guardian Understands and Agrees with Anesthesia Plan: Yes PreAnesthesia Questionnaire HEENT History: Reports: Allergic Rhinitis, Sinusitis Cardiovascular History: Reports: Other (See Below) Other Cardiovascular History: Antiphospholipid syndrome- positive anti- cardiolipin antibody Respiratory History: Reports: None Gastrointestinal History: Reports: GERD, Hemorrhoids, Other (See Below) Other Gastrointestinal History: umbilical hernia Genitourinary History: Reports: None WASHHOUSE HAND History: Reports: , Other (See Below) (7 weeks post , ) Other OB/BYN History: GBS+, ovulatory pain, knee surgery Other Musculoskeletal History: connective tissue disorder Neurological History: Reports: Seizure, Other (See Below) Other Neuro History: Epilepsy in childhood, seizure free over 20 years per pt Psychiatric History: Reports: None Endocrine/Metabolic History: Reports: None Hematologic History: Reports: None Immunologic History: Reports: Other (See Below) Other Immunologic History: Connective tissue disorder Oncologic (Cancer) History: Reports: None - Infectious Disease History Infectious Disease History: Reports: Chicken Pox - Past Surgical History Head Surgeries/Procedures: Reports: None HEENT Surgical History: Reports: Oral Surgery, Tonsillectomy Cardiovascular Surgical History: Reports: None Respiratory Surgical History: Reports: None GI Surgical History: Reports: Appendectomy Female Surgical History: Reports: None Male Surgical History: Reports: None Endocrine Surgical History: Reports: None Neurological Surgical History: Reports: None Musculoskeletal Surgical History: Reports: Arthroscopic Knee, Other (See Below) Other Musculoskeletal Surgeries/Procedures:: Right ACL repair Oncologic Surgical History: Reports: None Dermatological Surgical History: Reports: None - SUBSTANCE USE Smoking Status *Q: Never Smoker Recreational Drug Use History: No - HOME MEDS Home Medications: Home Meds Vit with Ca/FA/Iron [ Plus Iron] 1 each PO DAILY #100 tablet [Rx] Calcium Carbonate [Calcium] 500 mg PO DAILY 04/24/19 [History] Acetaminophen [Tylenol] 650 mg PO Q4H PRN tablet 06/12/19 [Rx] Ibuprofen [Motrin] 600 mg PO Q4H PRN tablet 06/12/19 [Rx] - CURRENT (IN HOUSE) MEDS Current Meds: Current Medications Lactated Ringer's (Ringers, Lactated) 1,000 mls @ 125 mls/hr IV ASDIRECTED BLAYNE Stop: 08/02/19 23:00 Lidocaine/Sodium Bicarbonate (Buffered Lidocaine 1% In Ns 8.4%) 0.25 ml IDERM ONETIME PRN PRN Reason: Prior to IV Start Stop: 08/02/19 18:00 Sodium Chloride (Saline Flush) 10 ml FLUSH ASDIRECTED PRN PRN Reason: Keep Vein Open Stop: 08/02/19 18:00 Discontinued Medications Fentanyl (Sublimaze) Confirm Administered Dose 250 mcg .ROUTE .STK-MED ONE Stop: 08/02/19 08:16 Lidocaine HCl (Xylocaine-Mpf 1%) Confirm Administered Dose 4 mls @ as directed .ROUTE .STK-MED ONE Stop: 08/02/19 08:15 Midazolam HCl (Versed 1 Mg/Ml) Confirm Administered Dose 2 mg .ROUTE .STK-MED ONE Stop: 08/02/19 08:16 Ondansetron HCl (Zofran) Confirm Administered Dose 4 mg .ROUTE .STK-MED ONE Stop: 08/02/19 08:15 Propofol (Diprivan 20 Ml) Confirm Administered Dose 200 mg .ROUTE .STK-MED ONE Stop: 08/02/19 08:15 Rocuronium Elizabeth (Zemuron) Confirm Administered Dose 50 mg .ROUTE .STK-MED ONE Stop: 08/02/19 08:15
[2019-08-02] MEDS: Lactated Ringers 1,000 ML IV SCH ×2 (08:35→08:36)
--- NOTE | 2019-08-02 11:12 | PCM.PRNOTE ---
- Free Text/Narrative Note: Date: 08/02/2019 Operation: laparoscopic umbilical hernia repair with intraperitoneal mesh placement Surgeon: Robles Meehan MD Findings: very small umbilical hernia with incarcerated visceral fat lobule. This was excised and a circular 8 cm diameter mesh was placed intraperitoneally to cover the defect. Detailed Report: The patient was taken to the operating room and placed in supine position. Timeout was performed. General endotracheal anesthesia was administered. The abdomen was prepped and draped in sterile fashion after talking the patient's left arm at her side. 0.5% Marcaine with epinephrine was injected at the Veress insertion site at the left upper quadrant along the costal margin. A annette incision was made with the 11 blade, and the Veress needle was inserted into the abdominal cavity. The abdomen was insufflated to 15 mmHg with carbon dioxide. Air was aspirated with needle and syringe at a site at the left lower quadrant. A 5 mm incision was made at this point, and the 5 mm laparoscopic port inserted. The 5 mm 30 degree laparoscope was inserted at this site, and abdominal contents inspected. A 12 mm incision was made at the site of the Veress needle insertion, and a 12 mm port was placed in the left upper quadrant. The fascial defect at the umbilicus was less than 1 cm, and was reduced with manual pressure. There was a small fat lobule contained within the hernia sac, that was free standing for many other visceral structures. This was removed from the parietal peritoneum of the anterior abdominal wall using the [place] LigaSure. Next, a ventral light mesh was introduced into the field. This was cut into roughly circular shape with 8 cm diameter. 3 sutures were placed for trans-fascial fixation using 0 Vicryl suture. Mesh was rolled up and introduced into the abdomen through the 12 mm port. Annette incisions were made at the 12:00, 2:00 and 8:00 positions surrounding the umbilicus, roughly 5 cm from the center of the umbilicus. The laparoscopic suture passer was used to pull the 0 Vicryl stitches sewn to the mesh up through the abdominal wall. The mesh was tied down in place, and there did appear to be some bleeding from an epigastric vessel that was controlled with manual pressure. The suction line up examiner was used to suck up a small amount of blood from the abdomen. With hemostasis assured, the secure strap was introduced and used to place additional tacks to secure the mesh in place. Abdominal contents were again inspected and no inadvertent injury was identified , the operative field was hemostatic. The 12 mm port was removed, and fascia was closed with 0 Vicryl suture. The 2 port sites were closed at the level of skin with running Vicryl suture. Dermabond was applied to the neck incisions and the laparoscopic port site incisions. The patient tolerated the procedure well. Robles Meehan MD General Surgery.
[2019-08-02] MEDS: fentaNYL 100 MCG/2 ML SDV IVPUSH PRN ×2 (11:25→11:30)
--- NOTE | 2019-08-02 11:28 | PCM.POSTAN ---
POST ANESTHESIA ASSESSMENT - MENTAL STATUS Mental Status: Alert - VITAL SIGNS Vital Signs: Last Vital Signs Temp 36.5 C 08/02/19 08:27 Pulse 57 L 08/02/19 08:27 Resp 16 08/02/19 08:27 BP 110/67 08/02/19 08:27 Pulse Ox 97 08/02/19 08:27 - RESPIRATORY Respiratory Status: Respiratory Rate WNL, Airway Patent, O2 Saturation Stable - CARDIOVASCULAR CV Status: Pulse Rate WNL, Blood Pressure Stable - GASTROINTESTINAL GI Status: No Symptoms - PAIN Pain Score: 8 (being managed bypacu orderas in ) - POST OP HYDRATION Hydration Status: Adequate & Stable
--- NOTE | 2019-08-02 14:26 | PCM48HPAN ---
Post Anesthesia Note - EVALUATION WITHIN 48HRS OF ANESTHETIC Vital Signs in Normal Range: Yes Patient Participated in Evaluation: Yes Respiratory Function Stable: Yes Airway Patent: Yes Cardiovascular Function Stable: Yes Hydration Status Stable: Yes Pain Control Satisfactory: Yes Nausea and Vomiting Control Satisfactory: Yes Mental Status Recovered: Yes Vital Signs: Last Vital Signs Temp 36.6 C 08/02/19 12:10 Pulse 59 L 08/02/19 12:25 Resp 12 08/02/19 12:25 BP 106/50 L 08/02/19 12:25 Pulse Ox 96 08/02/19 12:25
[2019-08-02 14:29] VITALS: BP 102/55; PULSE 81
== END | disposition home or self-care (01) ==
LOC: JD.SDS 07:41
PROVIDERS: ATTEND Surgery
DX: O99.63 Diseases of the digestive system complicating the puerperium (principal); K42.0 Umbilical hernia with obstruction, without gangrene; K21.9 Gastro-esophageal reflux disease without esophagitis; O99.89 Other specified diseases and conditions complicating pregnancy, childbirth and the puerperium; R76.0 Raised antibody titer; R76.8 Other specified abnormal immunological findings in serum; Z79.899 Other long term (current) drug therapy
CPT/HCPCS: 49653; 81025; J0131; J0690; J1170; J2001; J2250; J2405; J2704; J2710; J3010; J3490; J7120